=== PATIENT | female | born 1965 | race Caucasian/White ===

== ENCOUNTER 2019-10-18 22:46 | Observation (INO) ==
[2019-10-18] MEDS ORDERED: Nitroglycerin 0.4 MG TAB.SUBL SL PRN (22:58)
[2019-10-18] MEDS ORDERED: Aspirin 81 MG TAB.CHEW PO ONE (22:58)
[2019-10-18 23:34] LABS: Basophils # 0.1 K/mcL (0.0-0.2); Basophils % 0.6 %; Eosinophils # 0.3 K/mcL (0.0-0.6); Eosinophils % 2.9 %; Hematocrit 37.3 % (35.3-44.9); Hemoglobin 12.4 g/dL (11.5-15.4); Immature Granulocytes % 0.2 % (0-4); Lymphocytes # 3.5 K/mcL (0.6-4.6); Lymphocytes % 33.9 %; Mean Corpuscular HGB Conc 33.2 g/dL (31.6-35.5); Mean Corpuscular Hemoglobin 29.2 pg (28.0-33.3); Mean Platelet Volume 10.2 fL (9.4-12.4); Monocytes # 0.7 K/mcL (0.0-1.3); Monocytes % 7.3 %; Neutrophils # 5.6 K/mcL (1.6-8.9); Platelet Count 289 K/mcL (140-400); Red Blood Count 4.24 M/mcL (3.82-4.97); Red Cell Distribution Width 14.5 % (11.5-14.5); Segmented Neutrophils % 55.1 %; White Blood Count 10.2 K/mcL (4.3-11.1)
[2019-10-18 23:35] LABS: Prothrombin Time 11.2 Seconds (9.4-12.1)
[2019-10-18 23:38] LABS: Activated Partial Thrombo Time 34.5 Seconds (26.0-36.0)
[2019-10-18 23:42] LABS: BUN/Creatinine Ratio 14 (6-26); Blood Urea Nitrogen 9 mg/dL (6-20); Carbon Dioxide 23 mEq/L (23-29); Chloride 109 mEq/L (98-107); Glucose 97 mg/dL (70-105); Osmolality,Calculated 291 (280-300); Potassium 3.3 mEq/L (3.5-5.1); Sodium 141 mEq/L (136-145); eGFR For African Americans > 60 (> 60); eGFR For Non-African Americans > 60 (> 60)
[2019-10-18 23:43] LABS: Troponin I < 0.03 ng/mL (< 0.04)
[2019-10-18] MEDS ORDERED: Potassium Effervescent 25 MEQ TABLET.EFF PO ONE (23:54)
[2019-10-19] MEDS ORDERED: Naloxone 0.4 MG/ML INJ IVP PRN (04:01)
[2019-10-19] MEDS ORDERED: Ondansetron 4 MG/2 ML VIAL IVP PRN (08:39)
[2019-10-19] MEDS ORDERED: Ipratropium/Albuterol Neb 3 ML IH PRN (08:42)
[2019-10-19] MEDS ORDERED: Regadenoson 0.4 MG/5 ML SYRINGE IVP ONE ×2 (10:12→10:15)
[2019-10-19 10:38] LABS: Adenovirus Not Detected (Not Detect); Coronavirus 229E Not Detected (Not Detect); Coronavirus HKU1 Not Detected (Not Detect); Coronavirus NL63 Not Detected (Not Detect); Coronavirus OC43 Not Detected (Not Detect); Human Metapneumovirus Not Detected (Not Detect); Human Rhinovirus/Enterovirus Not Detected (Not Detect); Influenza A Subtype 2009 H1 Not Detected (Not Detect); Influenza A Untypeable Not Detected (Not Detect)
[2019-10-19 10:39] LABS: Bordetella Pertussis Not Detected (Not Detect); Chlamydophila pneumoniae Not Detected (Not Detect); Influenza B Not Detected (Not Detect); Mycoplasma pneumoniae Not Detected (Not Detect); Parainfluenza Virus 1 Not Detected (Not Detect); Parainfluenza Virus 2 Not Detected (Not Detect); Parainfluenza Virus 3 Not Detected (Not Detect); Parainfluenza Virus 4 Not Detected (Not Detect); Respiratory Syncytial Virus Not Detected (Not Detect)
[2019-10-19] MEDS ORDERED: Aspirin 325 MG TABLET PO ONE ×2 (16:05→23:00)
[2019-10-19] MEDS ORDERED: Perflutren Lipid Microsphere 1.3 ML in 0.9 % Sodium Chloride 8.7 ML IVP ONE (16:33)
[2019-10-19] MEDS: *HR* Heparin 5,000 UNIT/ML VIAL SQ SCH (18:37)
[2019-10-20] MEDS: *HR* Heparin 5,000 UNIT/ML VIAL SQ SCH (06:07)
[2019-10-20 06:51] VITALS: BP 106/68
[2019-10-20] MEDS ORDERED: Fluticasone Propionate Nasal 50 MCG/SPRAY BOTTLE NS SCH (09:30)
== END 2019-10-20 11:56 | disposition home or self-care (01) ==
LOC: EMEROOARM 22:46 → CDU 22:46 → SUATTDRO 10-19 02:48 → CDU 10-19 04:09 → 3BNU 10-19 17:40
PROVIDERS: ADMIT Internal Medicine; ATTEND Student in an Organized Health Care Education/Training Program